=== PATIENT | female | born 1960 | race Caucasian/White ===

== ENCOUNTER 2016-11-03 20:03 | Emergency (ER) | payer BC, MEDICAID ==
[2016-11-03] MEDS ORDERED: Sodium Chloride 0.9% 1,000 ML IV ONE (21:39)
[2016-11-03 22:07] LABS: RBC URINE 5 /hpf (0-3); URINE BACTERIA RARE (<OCC); URINE BILIRUBIN NEGATIVE (NEGATIVE); URINE BLOOD NEGATIVE (NEGATIVE); URINE COLOR Straw (YELLOW); URINE GLUCOSE (UA) NORMAL (Normal); URINE KETONE NEGATIVE (NEGATIVE); URINE LEUKOCYTE ESTERASE 2+ Leu/uL (Negative); URINE PROTEIN 1+ mg/dL (NEGATIVE); URINE UROBILINOGEN NORMAL mg/dL (0.2-1.0); WBC URINE 14 /hpf (0-5)
[2016-11-03 22:09] LABS: BASO # 0.1 K/uL (0.0-0.2); EOS # 0.7 K/uL (0.0-0.7); EOS % 8.7 % (0.0-4.0); HEMATOCRIT 25.4 % (34.0-47.0); INR 1.2; LYMPH # 0.8 K/uL (1.0-4.3); LYMPH % 10.6 % (20.0-40.0); MEAN CELL VOLUME 76.3 fL (81.0-99.0); MEAN CORPUSCULAR HEMOGLOBIN 24.9 pg (27.0-31.0); MEAN CORPUSCULAR HGB CONC 32.6 g/dL (33.0-37.0); MEAN PLATELET VOLUME 7.1 fL (7.2-11.7); MONO # 0.4 K/uL (0.0-0.8); MONO % 5.4 % (0.0-10.0); RED CELL DISTRIBUTION WIDTH 17.3 % (11.5-14.5); WHITE BLOOD COUNT 7.8 K/uL (4.8-10.8)
[2016-11-03 22:11] LABS: CHLORIDE 94 mmol/L (98-107); POTASSIUM 3.6 mmol/L (3.6-5.2); SODIUM 136 mmol/L (132-148)
[2016-11-03 22:13] LABS: BILIRUBIN,TOTAL 0.5 mg/dL (0.2-1.3); GFR AFRICAN-AMERICAN > 60
[2016-11-03 22:14] LABS: ALB/GLOB RATIO 1.1 (1.0-2.1); ALKALINE PHOSPHATASE 77 U/L (38-126); ALT/SGPT 14 U/L (9-52); AST/SGOT 12 U/L (14-36); BLOOD UREA NITROGEN 15 mg/dL (7-17); CARBON DIOXIDE 31 mmol/L (22-30); GLUCOSE,RANDOM 170 mg/dL (65-105)
[2016-11-03 22:15] LABS: CALCIUM 8.7 mg/dl (8.6-10.4)
--- NOTE | 2016-11-03 23:40 | C.PDOC ---
History Of Present Illness Pt came to the ED because of decreased urinary output from her Hurley catheter today. Time Seen by Provider: 11/03/16 21:26 Chief Complaint (Nursing): Female Genitourinary History Per: Patient, Family Onset/Duration Of Symptoms: Hrs Current Symptoms Are (Timing): Still Present Severity: Moderate Quality Of Discomfort: Unable To Describe Associated Symptoms: Urinary Symptoms Alleviating Factors: None Additional History Per: Prior Records Abnormal Vaginal Bleeding: No Past Medical History Reviewed: Historical Data, Nursing Documentation, Vital Signs Vital Signs: Last Vital Signs Temp 98.5 F 11/03/16 20:32 Pulse 81 11/03/16 20:32 Resp 14 11/03/16 20:32 BP 133/84 11/03/16 20:32 Pulse Ox 100 11/03/16 20:32 - Medical History PMH: HTN, Malignancy (rectal) Other PMH: Vesico-vaginal fistula. Other Surgeries: Ileostomy. Hysterectomy. Family History: States: Unknown Family Hx - Social History Hx Alcohol Use: No Hx Substance Use: No - Immunization History Hx Tetanus Toxoid Vaccination: No Hx Influenza Vaccination: No Hx Pneumococcal Vaccination: No Review Of Systems Except As Marked, All Systems Reviewed And Found Negative. Constitutional: Negative for: Fever, Weakness Cardiovascular: Negative for: Chest Pain Respiratory: Negative for: Shortness of Breath Gastrointestinal: Negative for: Vomiting, Abdominal Pain Musculoskeletal: Positive for: Back Pain. Negative for: Neck Pain Neurological: Negative for: Weakness, Numbness, Seizures, Altered Mental Status Physical Exam - Physical Exam Appears: No Acute Distress, Chronically Ill Skin: Normal Color, Warm, Dry Head: Atraumatic, Normacephalic Eye(s): bilateral: PERRL, EOMI Neck: Normal ROM, Supple Cardiovascular: Rhythm Regular Respiratory: Normal Breath Sounds, No Accessory Muscle Use Gastrointestinal/Abdominal: Soft, No Tenderness, Other (surgical scars) Back: CVA Tenderness (mild b/l) Pelvic: Other (Hurley catheter in place) Extremity: Normal ROM Neurological/Psych: Oriented x3, Normal Motor, Normal Sensation ED Course And Treatment - Laboratory Results Result Diagrams: 11/03/16 22:00 11/03/16 22:00 Lab Interpretation: No Changes Compared To Prior Results O2 Sat by Pulse Oximetry: 100 Pulse Ox Interpretation: Normal - CT Scan/US CT abd/ Other Rad Studies (CT/US): Read By Radiologist, Radiology Report Reviewed CT/US Interpretation: Mild to moderat b/l hydroureteronephrosis. Progress Note: Pt is now putting out urine after IV hydration. Reassessment Condition: Improved Medical Decision Making Medical Decision Making: Family had labs and CT scan reports from a recent admission and there are no changes on today's studies. Disposition Counseled Patient/Family Regarding: Studies Performed, Diagnosis, Need For Followup - Disposition Disposition: HOME/ ROUTINE Disposition Time: 23:45 Condition: IMPROVED Additional Instructions: Drink plenty of fluids. Follow up with your doctor. Return to the ER if you develop fever, vomiting, abdominal pain, worsening of symptoms or if you have any other concerns. Instructions: Hurley Catheter Placement and Care (ED) - Clinical Impression Clinical Impression: Hydroureteronephrosis, Hurley catheter in place
[2016-11-03 23:58] VITALS: BP 178/90; PULSE 85; RESP 18; TEMP 98.6; O2SAT 95
--- NOTE | 2016-11-04 09:53 | CT ---
PROCEDURE: CT Abdomen and Pelvis without intravenous contrast HISTORY: b/l flank pain, decreased urine from herrera COMPARISON: None. TECHNIQUE: Unenhanced study. Neither oral nor intravenous contrast administered. Radiation dose: Total exam DLP = 552.10 mGy-cm. This CT exam was performed using one or more of the following dose reduction techniques: Automated exposure control, adjustment of the mA and/or kV according to patient size, and/or use of iterative reconstruction technique. FINDINGS: LOWER THORAX: Unremarkable. LIVER: Unremarkable. No gross lesion or ductal dilatation. GALLBLADDER AND BILE DUCTS: Unremarkable. PANCREAS: Unremarkable. No gross lesion or ductal dilatation. SPLEEN: Unremarkable. ADRENALS: Unremarkable. No mass. KIDNEYS AND URETERS: Bilateral hydronephrosis and hydroureter left greater than right. VASCULATURE: Unremarkable. No aortic aneurysm. BOWEL: Postoperative changes following colonic resection, including extensive postoperative changes in the pelvis presacral region and anastomotic suture line related to colon resection in the right lower quadrant. Left lower quadrant diverting ostomy. Postoperative changes midline incision with air within the soft tissues, peritoneal reflection. Fistulous communication in the absence of recent surgery should be considered. No evidence of mechanical obstruction. No drainable collection. APPENDIX: Not visualized. Presumed resection. PERITONEUM: Unremarkable. No free fluid. No free air. LYMPH NODES: Unremarkable. No enlarged lymph nodes. BLADDER: Unremarkable.Herrera catheter in good position within the urinary bladder. No focal bladder abnormalities. Yarbrough REPRODUCTIVE: Unremarkable. BONES: No acute fracture. OTHER FINDINGS: None. IMPRESSION: Bilateral hydronephrosis, mild left greater than right. No focal obstructing lesion. No evidence of calculus disease. Herrera catheter in good position. Extensive postoperative changes lower quadrants and pelvis related to bowel resection. No abnormalities at the colo enteric anastomosis. Limitations of the current examination: Absence of oral contrast precludes more meaningful assessment of findings in the lower quadrants, the anastomotic site and the presacral region. Concordant results (preliminary interpretation) provided by [employer]. Procedure Completed: 22:16. Preliminary ([facility]) Report: Dictated and Authenticated: 22:39. Final Interpretation: 09:51. November 04, 2016.
== END 2016-11-04 00:08 | disposition home or self-care (01) ==
LOC: C.ER 20:03
DX: N13.30 Unspecified hydronephrosis (principal); Z46.6 Encounter for fitting and adjustment of urinary device; I10 Essential (primary) hypertension; Z85.048 Personal history of other malignant neoplasm of rectum, rectosigmoid junction, and anus
CPT/HCPCS: 74176; 80053; 81001; 85025; 85610; 85730; 87086; 96360; 99285; J7040